=== PATIENT | male | born 1945 | race Caucasian/White ===

== ENCOUNTER 2021-12-11 05:47 | Inpatient (IN) | payer OTHER ==
[~2021-12-11] VITALS: Ht 175.3 cm; Wt 59.9 kg
[~2021-12-11 05:47] MED LIST: ALPHAGAN P5 M1 OP; ATIVAN0.5 M1 PO; ATORVASTATIN CA20 MG PO; BISOPROLOL-HCTZ1 TAB PO; FENOFIBRATE145 MG PO; FLUOROMETHOLONE5 ML OP; HUM; HUMALOG100 UNIT/1; LANTUS PO; LIPIT PO; LUMIGAN2.5 M1 OP; PANCREAZE PO; [UNRECOGNIZED DRUG - CODE] PO
[2021-12-12] MEDS ORDERED: OFLOXACIN5 ML (08:19)
[2021-12-12] MEDS ORDERED: KETOTIFEN FUMARA5 ML (08:19)
[2021-12-12] MEDS ORDERED: LOSARTAN POTAS100 MG (08:19)
[2021-12-12] MEDS ORDERED: REFRESH OPTIVE10 ML (08:19)
[2021-12-12] MEDS ORDERED: DILTIAZEM 24HR240 MG (08:20)
[2021-12-12] MEDS ORDERED: GABAPENTIN100 M2 (08:20)
[2021-12-12] MEDS ORDERED: CILOSTAZOL100 MG (08:20)
[2021-12-12] MEDS ORDERED: FENOFIBRATE160 MG (08:20)
[2021-12-12] MEDS ORDERED: CREON DR 24,001 EACH (08:20)
== END 2021-12-14 09:33 | disposition home or self-care (01) | DRG 355 ==
LOC: CIR.AMB 05:47 → SURH 09:59 → CIR.AMB 10:00 → SURH 12-14 09:33
PROVIDERS: ADMIT Specialist; ATTEND Specialist
PROC: 0WQF0ZZ Repair Abdominal Wall, Open Approach (ICD-10-PCS; principal; 2021-12-13 13:15)
DX: K40.90 Unilateral inguinal hernia, without obstruction or gangrene, not specified as recurrent (principal); I10 Essential (primary) hypertension; E11.65 Type 2 diabetes mellitus with hyperglycemia; Z79.4 Long term (current) use of insulin; Z20.822 Contact with and (suspected) exposure to COVID-19